=== PATIENT | female | born 1990 | race African-American/Black ===

== ENCOUNTER 2020-01-29 12:41 | Emergency (ER) | payer OTHER ==
[2020-01-29 13:24] LABS: ABS Basophils 0.1 10^3/ul (0-0.2); ABS Eosinophils 0.2 10^3/ul (0-0.6); ABS Lymphocytes 0.9 10^3/ul (1.0-4.8); ABS Monocytes 0.6 10^3/ul (0-0.8); ABS Neutrophils 9.6 10^3/ul (1.5-7.7); Eosinophil % 1.3 %; Hematocrit 36 % (35-47); Hemoglobin 12.8 g/dL (12.0-16.0); Lymphocyte % 8.2 %; Mean Corpuscular HGB Conc 35 g/dL (31-36); Mean Corpuscular Hemoglobin 35 pg (27-31); Mean Corpuscular Volume 98 fL (80-97); Mean Platelet Volume 7.4 fL (7.4-10.4); Platelet Count 350 10^3/uL (150-450); Red Blood Count 3.69 10^6 /uL (3.70-4.87); Red Cell Distribution Width 12 % (10-15); White Blood Count 11.3 10^3/uL (3.5-10.8)
--- NOTE | 2020-01-29 13:32 | ED ---
- HPI Summary HPI Summary: 29-year-old female with a history of one miscarriage presents to the emergency department today with chief complaint of vaginal bleeding and lower abdominal pain which began this morning when she woke from bed. Patient states she awoke and noticed dark blood on her sheets and had a bout 10 crampy abdominal pain however upon presentation to the emergency department she has no pain and no vaginal bleeding. Patient states her last menstrual period was November 08, 2019 and she took a positive test at [facility] on December 09, 2019. Patient states she has not seen OB yet however she has an appointment with them tomorrow for her first ultrasound. Patient is otherwise well and denies fevers, recent travel, cough, chest pain, abdominal pain, shortness of breath, nausea, vomiting, diarrhea. Patient endorses tobacco use and marijuana use. - History of Current Complaint Chief Complaint: EDVaginalBleeding Stated Complaint: PREG AND SPOTTING HEAVILY PER PT Time Seen by Provider: 01/29/20 13:14 Hx Obtained From: Patient Chief Complaint: Concern for Demise, Pain, Vaginal Bleeding, Vaginal Discharge Onset/Duration: Started Hours Ago Timing: Constant Severity: Severe Current Severity: Severe Pain Intensity: 8 Character: Cramping Associated Signs and Symptoms: Positive: Vaginal Bleeding or Discharge - Allergies/Home Medications Allergies/Adverse Reactions: Allergies Allergy/AdvReac Type Severity Reaction Status Date / Time No Known Allergies Allergy Verified 01/29/20 12:47 Home Medications: Home Medications NK [No Home Medications Reported] 01/29/20 [History Confirmed 01/29/20] PMH/Surg Hx/FS Hx/Imm Hx Infectious Disease History: No Infectious Disease History: Denies: Traveled Outside the [place] in Last 30 Days - Social History Alcohol Use: None Substance Use Type: Reports: Marijuana Substance Use Comment - Amount & Last Used: last used yesterday. 2x/day Smoking Status (MU): Light Every Day Tobacco Smoker Review of Systems Constitutional: Negative Eyes: Negative ENT: Negative Cardiovascular: Negative Respiratory: Negative Positive: Abdominal Pain Positive: discharge Musculoskeletal: Negative Skin: Negative Neurological/Mental Status: Negative Psychological: Normal All Other Systems Reviewed And Are Negative: Yes Physical Exam - Summary Physical Exam Summary: Patient is in no acute distress. Patient's abdomen is nontender with no ecchymosis or masses. Vaginal exam was chaperoned by SARAY Shoemaker. There is no lesions of the external genitalia. There is no evidence of lacerations to the vaginal tamayo. No cervical motion tenderness or dilatation of the cervix. There is noted blood coming from the cervix. No evidence of other discharge. - Physical Exam Triage Information Reviewed: Yes Vital Signs Reviewed: Yes Appearance: Positive: Well-Appearing, No Pain Distress, Well-Nourished Skin: Positive: Warm, Skin Color Reflects Adequate Perfusion Procedures - Sedation Patient Received Moderate/Deep Sedation with Procedure: No Diagnostics - Vital Signs Vital Signs Temp Pulse Resp BP Pulse Ox 01/29/20 12:46 98 F 110 16 149/89 100 - Laboratory Lab Results: Lab Results 01/29/20 Range/Units 13:12 WBC 11.3 H (3.5-10.8) 10^3/uL RBC 3.69 L (3.70-4.87) 10^6 /uL Hgb 12.8 (12.0-16.0) g/dL Hct 36 (35-47) % MCV 98 H (80-97) fL MCH 35 H (27-31) pg MCHC 35 (31-36) g/dL RDW 12 (10-15) % Plt Count 350 (150-450) 10^3/uL MPV 7.4 (7.4-10.4) fL Neut % (Auto) 84.6 % Lymph % (Auto) 8.2 % [place] % (Auto) 5.2 % Eos % (Auto) 1.3 % Baso % (Auto) 0.7 % Absolute Neuts (auto) 9.6 H (1.5-7.7) 10^3/ul Absolute Lymphs (auto) 0.9 L (1.0-4.8) 10^3/ul Absolute Monos (auto) 0.6 (0-0.8) 10^3/ul Absolute Eos (auto) 0.2 (0-0.6) 10^3/ul Absolute Basos (auto) 0.1 (0-0.2) 10^3/ul Absolute Nucleated RBC 0.0 10^3/ul Nucleated RBC % 0.0 Result Diagrams: 01/29/20 13:12 01/29/20 13:12 Lab Statement: Any lab studies that have been ordered have been reviewed, and results considered in the medical decision making process. Course/Dx - Course Course Of Treatment: Patient was evaluated in the emergency department today for vaginal bleeding. Vitals noted and stable. Patient afebrile. Physical exam shows no cervical motion tenderness however there is bleeding from the cervical os. Laboratory studies returned showing mild leukocytosis with white blood cell count 11.3. There is no evidence of anemia with an H&H of 12.8/36. There are no significant electrolyte abnormalities. Beta hCG is [id number] type and screen shows blood type O+ and patient does not require RhoGAM. Vaginal ultrasound shows Single live intrauterine gestation with a crown-rump length yielding a gestational age of 12 weeks. Subchorionic hemorrhage measuring 1.5 cm in maximum thickness surrounding approximately 50% gestational sac. NUMEROLOGIST, Dr. Dias consulted for disposition of the patient. Dr. Dias believes this bleeding will resolve on its own and shortly and there is no threat to the mother or the baby. Patient has a appointment with her NUMEROLOGIST tomorrow. Patient discharged with outpatient follow-up with her NUMEROLOGIST tomorrow. - Differential Diagnosis/HQI/PQRI: Incomplete , Missed , Spontaneous , Threatened - Diagnoses Provider Diagnoses: Threatened Discharge ED - Sign-Out/Discharge Documenting (check all that apply): Patient Departure - Discharge Plan Condition: Stable Disposition: HOME Patient Education Materials: Threatened Miscarriage (ED) Referrals: No Primary Care Phys,NOPCP [Primary Care Provider] - Additional Instructions: The origin of your vaginal bleeding is no serious concern to you or your child. Please follow-up with your NUMEROLOGIST tomorrow with your scheduled appointment. Please return to this emergency Department immediately if you develop any new or worsening symptoms such as extreme abdominal pain. - Billing Disposition and Condition Condition: STABLE Disposition: Home - Attestation Statements Provider Attestation: I was available for consultation for this patient. I did not evaluate the patient or participate in any medical decision making or disposition decisions unless I am specifically named in the chart as having consulted on the patient. If I have consulted on the patient, please see my own ED note on the patient encounter. Iliana Pacheco MD
[2020-01-29 13:49] LABS: Albumin 4.4 g/dL (3.2-5.2); Albumin/Globulin Ratio 1.1 (1-3); BUN/Creatinine Ratio 15.2 (8-20); Calcium 9.6 mg/dL (8.6-10.3); EGFR African American 128.1 (>60); EGFR Non-African American 105.9 (>60); Globulin 3.9 g/dL (2-4); Potassium 3.3 mmol/L (3.5-5.0); Total Bilirubin 0.9 mg/dL (0.2-1.0); Total Protein 8.3 g/dL (6.4-8.9)
[2020-01-29 14:36] LABS: HIV 4th Generation Nonreactive (Nonreactive)
[2020-01-29 16:42] VITALS: BP 132/77
== END 2020-01-29 16:41 | disposition home or self-care (01) ==
LOC: ED 12:41
DX: O20.0 Threatened abortion (principal); Z3A.12 12 weeks gestation of pregnancy; F17.200 Nicotine dependence, unspecified, uncomplicated
CPT/HCPCS: 36415; 76801; 80053; 84702; 85025; 86850; 86900; 86901; 87389; 99282